=== PATIENT | male | born 1995 | race Caucasian/White ===

== ENCOUNTER → 2021-03-03 | Outpatient (REF) | payer OTHER | LOC: M LAB REF 13:06 | PROVIDERS: ATTEND Internal Medicine Pulmonary Disease | DX: Q67.6 Pectus excavatum (principal) ==

== ENCOUNTER → 2021-03-23 | Outpatient (CLI) | payer OTHER ==
--- NOTE | 2021-03-23 11:58 | PFTRPT ---
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 Pt was given four puffs of albuterol for post bronchodilator. Review Status: Not Reviewed Pre-Bronch Post-Bronch Pred Actual %Pred Actual %Chng SPIROMETRY FVC (L) 6.38 6.55 102 6.36 -2 FEV1 (L) 5.17 5.24 101 5.52 5 FEV1/FVC (%) 82 80 97 87 8 FEF 25% (L/sec) 9.02 8.56 94 10.33 20 FEF 50% (L/sec) 5.67 5.86 103 7.46 27 FEF 75% (L/sec) 2.32 2.40 103 2.79 15 FEF 25-75% (L/sec) 5.05 5.00 98 6.13 22 FEF Max (L/sec) 11.41 11.21 98 10.39 -7 FIVC (L) 6.48 6.08 -6 FIF 50% (L/sec) 5.55 9.02 162 6.68 -25 FIF Max (L/sec) 9.16 7.57 -17 MVV (L/min) 197 179 90 Expiratory Time (sec) 6.31 4.46 -29 Back Extrap Vol (L) 0.29 0.22 -25 Time To FEFmax (sec) 0.169 0.141 -16 LUNG VOLUMES SVC (L) 6.04 6.29 104 IC (L) 3.95 4.82 122 ERV (L) 2.09 1.47 70 TGV (L) 3.95 4.06 102 RV (Pleth) (L) 1.86 2.59 139 TLC (Pleth) (L) 7.90 8.88 112 RV/TLC (Pleth) (%) 23 29 126 DIFFUSION DLCOunc (ml/min/mmHg) 37.82 43.42 114 DLCOcor (ml/min/mmHg) 37.82 41.96 110 DL/VA (ml/min/mmHg/L) 4.79 5.11 106 VA (L) 7.90 8.21 103 BHT (sec) 9.63 IVC (L) 6.12 TLC (SB) (L) 8.36 AIRWAYS RESISTANCE Raw (cmH2O/L/s) 1.45 0.57 39 Gaw (L/s/cmH2O) 1.03 1.74 169 sRaw (cmH2O*s) 4.76 2.58 54 sGaw (1/cmH2O*s) 0.20 0.39 193 BLOOD GASES Hgb (gm/dL) 15.9
== END ==
LOC: M CARPUL 10:58
PROVIDERS: ATTEND Internal Medicine Pulmonary Disease
DX: Q67.6 Pectus excavatum (principal)

== ENCOUNTER → 2021-03-29 | Outpatient (CLI) | payer OTHER ==
[~2021-03-29] MED LIST: METHACHOLINE KIT (J7674) INH ONE
--- NOTE | 2021-03-29 11:00 | PFTRPT ---
Height: 75.00 Inches Weight: 215.00 Lbs BSA: 2.26 Diagnosis: Q67.6 DATE: 03/29/2021 ORDERED BY: FREDERICK ROB MD QUALITY: Study of excellent technical quality. PROCEDURE: Under protocol, methacholine was administered. At a dose of 2.5 mg or 13.875 CDUs, a 46% decline in the FEV1 was noted. PC of 0.53 is significant. Flow rates did return to baseline post bronchodilator administration. IMPRESSION: Positive methacholine challenge study. MTDD
== END ==
LOC: EDUNIT# 10:00 → M CARPUL 10:10
PROVIDERS: ATTEND Internal Medicine Pulmonary Disease
DX: Q67.6 Pectus excavatum (principal)
CPT/HCPCS: 94070; J7674